=== PATIENT | female | born 1995 | race African-American/Black ===

== ENCOUNTER 2021-11-21 02:27 | Emergency (ER) | payer BC, OTHER ==
[~2021-11-21] VITALS: Ht 167.6 cm; Wt 80.0 kg
[2021-11-21 02:32] VITALS: BP 108/74
== END 2021-11-21 08:01 | disposition left against medical advice (07) ==
LOC: ER 02:27
DX: Z53.21 Procedure and treatment not carried out due to patient leaving prior to being seen by health care provider (principal)
CPT/HCPCS: 99281